=== PATIENT | male | born 1945 | race Caucasian/White ===

== ENCOUNTER → 2021-02-21 | Outpatient (CLI) | payer OTHER ==
--- NOTE | 2021-02-21 14:32 | 2DMMODE ---
[facility] [place] [address] 2 D/M-MODE ECHOCARDIOGRAM Name: MAVIS DUONG Room #: REG CAMILLA M.R.#: [id number] Admission: 02/21/21 Attend Phys: Azael Schroeder MD Discharge: Date of : 43 Report #: [id number] THIS REPORT FOR: cc: Azael Schroeder MD,Azael Youssef,Gilmar [facility] ~ APPROVED REPORT Study performed: 02/21/2021 12:47:45 EXAM: Comprehensive 2D, Doppler, and color-flow Echocardiogram Patient Location: Out-Patient Status: routine BSA: 2.29 HR: 66 bpm BP: 130/74 mmHg Rhythm: NSR Other Information Study Quality: Adequate/morbid obesity Indications Ischemic heart disease. Hx: NH, stent, CVA, PVD, COPD, HTN, HLP, DM. 2D Dimensions RVDd: 41.46 mm IVSd: 10.41 (7-11mm) LVOT Diam: 22.12 (18-24mm) LVDd: 51.50 mm PWd: 9.72 (7-11mm) LVDs: 37.63 (25-40mm) Left Atrium: 40.91 (27-40mm) Aortic Root: 37.65 mm Volumes Left Atrial Volume (Systole) Single Plane 4CH: 56.81 mL Single Plane 2CH: 70.06 mL LA ESV Index: 29.00 mL/m2 Aortic Valve AoV Peak Johan.: 1.49 m/s AO Peak Gr.: 8.89 mmHg LVOT Max P.82 mmHg LVOT Max V: 1.40 m/s [facility] [place] [address] 2 D/M-MODE ECHOCARDIOGRAM Name: MAVIS DUONG Room #: REG CL [facility]#: [id number] Admission: 02/21/21 Attend Phys: Azael Schroeder MD Discharge: Date of : 43 Report #: [id number] [id number] Vmax: 3.60 cm2 Mitral Valve E/A Ratio: 1.4 MV Decel. Time: 196.46 ms MV E Max Johan.: 1.07 m/s MV A Johan.: 0.78 m/s MV PHT: 56.97 ms IVRT: 64.59 ms Pulmonary Valve PV Peak Johan.: 0.96 m/s PV Peak Gr.: 3.72 mmHg Pulmonary Vein P Vein S: 0.40 m/s P Vein A: 0.25 m/s P Vein D: 0.58 m/s P Vein A Dur.: 152.2 msec P Vein S/D Ratio: 0.69 Tricuspid Valve TR Peak Johan.: 3.00 m/s RAP Estimate: 5.00 mmHg TR Peak Gr.: 35.00 mmHg PA Pressure: 40.00 mmHg Left Ventricle The left ventricle is normal size. There is normal LV segmental wall motion. There is normal left ventricular wall thickness. Left ventricular systolic function is normal. LVEF is 55-60%. Moderate diastolic dysfunction is present (pseudonormal filling). Right Ventricle The right ventricle is normal size. The right ventricular systolic function is normal. Atria The left atrium size is normal. The right atrium size is normal. Aortic Valve The aortic valve is normal in structure. No aortic regurgitation is present. There is no aortic valvular stenosis. Mitral Valve The mitral valve is normal in structure. Trace mitral regurgitation. Tricuspid Valve [facility] [place] [address] 2 D/M-MODE ECHOCARDIOGRAM Name: MAVIS DUONG Room #: REG CL [facility].#: [id number] Admission: 02/21/21 Attend Phys: Azael Schroeder MD Discharge: Date of : 43 Report #: [id number] The tricuspid valve is normal in structure. Trace tricuspid regurgitation. Estimated PAP is 40mmHg. Pulmonic Valve The pulmonary valve is normal in structure. Great Vessels Aortic root measures at the upper limits of normal. Ascending aorta is not well visualized. IVC is normal in size and collapses >50% with inspiration. Pericardium There is no pericardial effusion. <Conclusion> Technically difficult study Normal left ventricular size/wall thickness Ejection fraction 60% Grade 3 diastolic dysfunction Normal right ventricle size/function Normal atrial size Color-flow Doppler study was performed of the aortic/mitral/tricuspid/pulmonary valve Normal aortic/mitral valve structure and function Trace tricuspid valve insufficiency Pulmonary systolic pressure estimated 40 mmHg No pericardial effusion Aortic root not well visualized <ELECTRONICALLY SIGNED> By: Gilmar Youssef MD, FACC 02/21/211431 31 31 Gilmar Youssef MD, FACC /INF
== END ==
LOC: CV 09:04
PROVIDERS: ATTEND Orthopaedic Surgery
DX: I25.9 Chronic ischemic heart disease, unspecified (principal)